=== PATIENT | male | born 1985 | race Caucasian/White ===

== ENCOUNTER 2017-06-08 18:18 | Emergency (ER) | payer OTHER ==
[~2017-06-08] VITALS: Ht 185.4 cm; Wt 127.4 kg
[~2017-06-08 18:18] MED LIST: CLEOCIN300 MG PO; MOTRIN800 MG PO; NAPROSYN500 MG PO; NOHOMEMEDS; PERCOCET 5/31 TABLET PO; PERIDEX1 ML MM; TYLENOL WITH C1 EACH PO
[2017-06-08 19:37] LABS: HEMATOCRIT 49.2 % (38.0-50.0); MCH 31.3 PG (29.0-34.0); MCHC 35.2 G/DL (30.0-36.0); MCV 89.1 FL (86-99); MEAN PLAT.VOLUME 8.9 uM^3 (9.0-12.4); PLATELET COUNT 321 K/uL (156-360); RBC DIS.WIDTH-CV 12.5 % (11.8-14.6); RBC DIS.WIDTH-SD 41.1 % (39-53); RED BLOOD COUNT 5.52 M/uL (4.00-5.50); WHITE BLOOD COUNT 10.3 K/uL (4.1-10.2)
[2017-06-08] MEDS ORDERED: MOTRIN800 MG PO (19:52)
[2017-06-08] MEDS ORDERED: FLEXERIL10 MG PO (19:52)
[2017-06-08 19:56] LABS: CHLORIDE 106 mEq/L (99-109); POTASSIUM 4.2 mEq/L (3.7-5.4)
[2017-06-08 19:57] LABS: SODIUM 139 mEq/L (136-147)
[2017-06-08 19:58] LABS: GLUCOSE 95 mg/dL (70-99); TROP-I INTERPRETATION NEGATIVE; TROPONIN-I < 0.01 ng/mL (0.0-0.30)
[2017-06-08 20:00] LABS: ANION GAP 10 MEQ/L (2-14)
[2017-06-08 20:02] LABS: GFR ESTIMATE (CALCULATED) > 59 mL/min/
[2017-06-08 20:03] LABS: UREA NITROGEN (BUN) 15 mg/dL (9-23)
[2017-06-08 20:24] VITALS: BP 135/90
== END 2017-06-08 20:25 | disposition home or self-care (01) ==
LOC: EME 18:18
DX: R07.89 Other chest pain (principal); R94.31 Abnormal electrocardiogram [ECG] [EKG]; F17.200 Nicotine dependence, unspecified, uncomplicated; Z88.0 Allergy status to penicillin; Z88.6 Allergy status to analgesic agent
CPT/HCPCS: 71020; 80048; 84484; 85027; 93005; 99281; 99284

== ENCOUNTER 2017-07-09 22:20 | Emergency (ER) | payer OTHER ==
[~2017-07-09] VITALS: Ht 185.4 cm; Wt 126.8 kg
[~2017-07-09 22:20] MED LIST changes: +FLEXERIL10 MG PO
[2017-07-09 23:22] LABS: MCHC 35.5 G/DL (30.0-36.0); MEAN PLAT.VOLUME 8.6 uM^3 (9.0-12.4); PLATELET COUNT 302 K/uL (156-360); RBC DIS.WIDTH-CV 12.5 % (11.8-14.6); RBC DIS.WIDTH-SD 41.1 % (39-53); RED BLOOD COUNT 5.22 M/uL (4.00-5.50); WHITE BLOOD COUNT 7.4 K/uL (4.1-10.2)
[2017-07-09 23:34] LABS: CHLORIDE 103 mEq/L (99-109); POTASSIUM 3.8 mEq/L (3.7-5.4); SODIUM 141 mEq/L (136-147)
[2017-07-09 23:35] LABS: GLUCOSE 122 mg/dL (70-99)
[2017-07-09 23:37] LABS: ANION GAP 11 MEQ/L (2-14)
[2017-07-09 23:39] LABS: GFR ESTIMATE (CALCULATED) > 59 mL/min/
[2017-07-09 23:40] LABS: UREA NITROGEN (BUN) 11 mg/dL (9-23)
[2017-07-09 23:45] LABS: TROP-I INTERPRETATION NEGATIVE; TROPONIN-I < 0.01 ng/mL (0.0-0.30)
[2017-07-10] MEDS ORDERED: PROVENTIL HFA6.7 GM IH (00:26)
[2017-07-10] MEDS ORDERED: TORADOL10 MG PO (00:26)
[2017-07-10 01:01] VITALS: BP 120/78
[2017-07-10 01:16] LABS: D-DIMER ELISA < 150.00 ng/mLDDU (<230)
== END 2017-07-10 01:04 | disposition home or self-care (01) ==
LOC: EME 22:20 → RME 22:20
PROVIDERS: Emergency Medicine
DX: J20.9 Acute bronchitis, unspecified (principal); R07.89 Other chest pain; F17.200 Nicotine dependence, unspecified, uncomplicated; Z88.0 Allergy status to penicillin
CPT/HCPCS: 71020; 80048; 84484; 85027; 85379; 93005; 99281; 99284